=== PATIENT | female | born 1985 | race Caucasian/White ===

== ENCOUNTER → 2017-08-03 09:39 | Outpatient (CLI) | payer OTHER, SELFPAY ==
[2017-08-06 08:07] LABS: HPV HC, High Risk Negative (Negative)
== END ==
PROVIDERS: Visit Provider Obstetrics & Gynecology
DX: Z12.4 Encounter for screening for malignant neoplasm of cervix (principal); Z12.72 Encounter for screening for malignant neoplasm of vagina
CPT/HCPCS: 87624; 88175; G0145

== ENCOUNTER → 2020-05-08 | Outpatient (CLI) | payer OTHER, SELFPAY ==
[2018-11-08 12:24] VITALS: BMI 23.0
[2020-05-15 14:55] LABS: HPV Reflexed? NOT INDICATED
== END | disposition home or self-care (01) ==
PROVIDERS: Referring Provider Nurse Practitioner Adult Health; Visit Provider Nurse Practitioner Adult Health
DX: Z01.419 Encounter for gynecological examination (general) (routine) without abnormal findings (principal)
CPT/HCPCS: 87070; 87205; 88175; G0145

== ENCOUNTER → 2020-06-24 15:40 | Outpatient (CLI) | payer OTHER, SELFPAY ==
[2018-11-08 12:24] VITALS: BMI 23.0
== END ==
PROVIDERS: Visit Provider Nurse Practitioner Family
DX: R05 Cough (principal)
CPT/HCPCS: 87635; U0005; U0003

== ENCOUNTER → 2024-05-16 | Outpatient (CLI) | payer OTHER, SELFPAY ==
[2024-05-16 12:47] LABS: Anion Gap 7 (5-15); BUN 13 mg/dL (7-18); BUN/Creat Ratio 17.4 RATIO (10-20); Calcium,Total 8.9 mg/dL (8.5-10.1); Chloride 109 mmol/L (98-107); Cholesterol 168 mg/dL (200); Creatinine, Serum 0.75 mg/dL (0.55-1.02); EST Glomerular Filtration Rate 93 mL/min (>60); Est Glom Filt Rate - Afr Amer 112 mL/min (>60); Glucose 85 mg/dL (74-106); High Density Lipoprotein 75 mg/dL; Potassium 3.7 mmol/L (3.5-5.1); Sodium Level 139 mmol/L (136-145); Triglycerides 65 mg/dL; Very Low Density Lipoprotein 13 mg/dL (5-40)
== END | disposition home or self-care (01) ==
LOC: MTLAB 09:04
PROVIDERS: PCP Family Medicine; Referring Provider Family Medicine; Visit Provider Family Medicine
DX: Z13.1 Encounter for screening for diabetes mellitus (principal); Z13.220 Encounter for screening for lipoid disorders; Z13.29 Encounter for screening for other suspected endocrine disorder
CPT/HCPCS: 36415; 80048; 80061; 84443

== ENCOUNTER → 2025-05-09 | Outpatient (CLI) | payer OTHER, SELFPAY ==
--- NOTE | 2025-05-09 12:51 | US_ITS ---
PROCEDURE: BREAST LIMITED UNILATERAL 05/09/2025 REASON FOR EXAM: F, Age 40 y/o , LUMP Palpable lump in the left breast. COMPARISON: Prior mammogram done earlier in the day.. TECHNIQUE: Procedure Code: USBRSTLIMIT Modality: US Procedure: BREAST LIMITED UNILATERAL FINDINGS: The upper inner quadrant of the left breast was examined with ultrasound. There is dense fibroglandular tissue. Dilated retroareolar ducts. US/Breast Limited Unilateral IMPRESSION: Dilated retroareolar ducts. Dense fibroglandular tissue. BI-RADS 2: BENIGN RECOMMENDATION: Routine annual follow-up in 1 Year Reading Location: [facility]
--- NOTE | 2025-05-09 13:01 | BI_ITS ---
EXAM: DIAG MAMM W/CAD, BILAT N/A CLINICAL HISTORY: F, Age 40 y/o , LEFT BREAST LUMP TECHNIQUE: Procedure Code: [id number] Modality: MG Procedure: DIAG MAMM W/CAD, BILAT. COMPARISON: Prior exam(s) dated baseline study.. FINDINGS: TISSUE DENSITY: The breasts are extremely dense, which lowers the sensitivity of mammography. Bilateral Breast Mammographic Findings: I suspect a 1.2 cm well-defined nodular density in the retroareolar region of the left breast. This most likely corresponds with the abnormality. Sonographic correlation recommended. BI/DIAG MAMM W/CAD, BILAT IMPRESSION: 1.2 cm well-defined nodular density in the retroareolar region of the left nat[address] st as described. Sonographic correlate recommended. OVERALL FINAL ASSESSMENT BI-RADS 0: INCOMPLETE - NEED ADDITIONAL IMAGING EVALUATION. RECOMMENDATION: Ultrasound Recommended Additional Recommendation none A letter with findings and recommendations will be mailed to the patient. Reading Location: [facility]
--- OUTSIDE RECORDS SUMMARY | 2025-05-09 14:34 | XMS RPT_ITS | CCD ---
Author Organization [facility] Inform ion Partnership [facility] Care Team Providers Care Volunteer Patient Representative Name Role Phone Lazaro MERCADO, Francis Miller Unavailable Britni Rdz Unavailable Unavailable Jayesh Decker Primary Care Unavailable Jayesh Decker Referring Unavailable Phuc BILLINGSLEY, Donnie Bunch Attending Unavailable Jayesh Decker Primary Care Unavailable Jayesh Decker Referring Unavailable Marcio Corbin Attending Unavailable Jayesh Decker Primary Care Unavailable Jayesh Decker Attending Unavailable Jayesh Decker Referring Unavailable Allergies Allergy Classification Reported Allergen(s) Allergy Type Date of Onset Reaction(s) Facility (3 sources) Azithromycin Drug Allergy 03-26-2017 [facility] Work Phone: (3 sources) Penicillin V Drug Allergy 03-26-2017 [facility] Work Phone: (1 source) Erythromycin Drug Allergy 08-29-[address] [facility] Repository (1 source) Penicillins Drug allergy (disorder) 08-29-[address] [facility] Repository Medications Completed/Discontinued Medications Medication Drug Class(es) Dates Sig (Normalized) Sig (Original) nitrofurantoin, macrocrystals 25 mg / nitrofurantoin, monohydrate 75 mg oral capsule (3 sources) Nitrofuran Antibacterial Start: 03-26-2017 End: 04-02-2017 NITROFURANTOIN MACROCRYSTAL 100 MG CAPS Take 1 capsule twice daily NITROFURANTOIN MACROCRYSTAL [id number] Francis MERCADO Problems Active Problems Problem Classification Problem Date Documented Da te Episodic/Chronic Other screening for suspected conditions (not mental disorders or infectious disease) (1 source) Encounter for screening for diabetes mellitus; Translations: [Encounter for screening for diabetes mellitus] Onset: 12-23-2024 Episodic Other upper respiratory infections (1 source) Acute upper respiratory infection, unspecified; Translations: [Acute upper respiratory infection, unspecified] Onset: 06-04-2024 Episodic Past or Other Problems Problem Classification Problem Date Documented Da te Episodic/Chronic Abdominal pain (3 sources) Flank pain; Translations: [Unspecified abdominal pain] Onset: 03-26-2017 03-26-2017 Episodic Urinary tract infections (3 sources) Cystitis; Translations: [Cystitis, unspecified without hematuria] Onset: 03-26-2017 03-26-2017 Episodic Results Test Name Value Interpretation Reference Range Facility Urgent Care Visit Reporton 0 08-29-2024 Urgent Care Visit Report [facility] [address], [address] [place] [address] OFFICE VISIT Date of Service: 08/29/24 MR#: [id number] Acct: [id number] Name: SYLVIA KOLB Rep #: [id number] 5 : 1985 Provider: JESS Mcdonnell Age/Sex: 39/F Location[place] [facility] [place] Status: Signed Intake Vital Signs 06/04/24 08:38 08/29/24 17:24 Height 5 ft 3 in Weight: 151 lb BMI 26.7 BP 112/60 126/68 H Blood Pressure Location Lt brachial Lt brachial Position Sitting Sitting Respiration 16 15 Pulse 103 H 82 Pulse Source NIBP NIBP Temp 99.6 F H 98.4 F Temp Source Oral Oral Pulse Oximetry (%) 97 98 Oxygen Delivery Method room air room air Intake Visit Reasons: ST/COUGH Chief Complaint: scratchy throat, cough, drainage Control Officer Manager Required: No Is patient in pain?: No Allergies erythromycin lactobionate (From Erythrocin) Allergy (Verified 08/29/24 17:25) Rash Penicillins Allergy (Verified 08/29/24 17:25) Rash Medications ???Medication ???Instructions ???Recorded ???Confirmed ???Type benzonatate 200 mg capsule 200 mg PO TID PRN cough #20 caps 0 08/29/24 08/29/24 Rx Is last menstrual period known: No Post menopausal: No Patient : No Have you fallen in the past year?: No Nurse's Note: scratchy throat, cough, drainage x 4 days. denies HALEY, BA, fever, ST, congestion PFSH Medical History (Updated 06/04/24 @ 08:56 by Donnie Friend [employer]IATE, [employer] ASSOCIATE-C) No active medical problems Surgical History (Updated 06/04/24 @ 08:40 by Crystal Simental) History of tonsillectomy lip repair surgery History of removal of skin mole H/O section Social History (Updated 11/09/18 @ 15:28 by David Guo [employer] ASSOCIATE, [employer] ASSOCIATE-C) Smoking Status: Never smoker alcohol intake: never HPI HPI Chief Complaint: scratchy throat, cough, drainage Details: SYLVIA KOLB, is a 39 F who presents to the office today for [facility] evaluation in the [facility] for approximately 4 day history of persistent scratchy throat, cough, and post nasal drip. No c/o fever, chills, HALEY, myalgias, fatigue, nausea, and diarrhea. Patient notes no complaints of chest pain or shortness of breath or dyspnea on exertion. Several close contacts recently dx???d w/ similar URI complaints. No bnmd-rwg-theqryp products taken to assist. Nonsmoker. No other associated symptoms and no other alleviating/aggravat ing factors. ROS Const Constitutional: No other (As above) Exam Const General: cooperative, healthy appearing and no acute distress Orientation: alert, awake and oriented x3 HENMT Head: normal to inspection Ears: hearing grossly normal bilaterally, external ears normal, TM's normal bilaterally and EAC's normal Nose: external nose normal, nares normal, septum normal and clear nasal discharge Face and sinus: normal facial exam, sinuses nontender and face symmetric Mouth: oral mucosae normal, lip normal, tongue normal and oropharynx normal Throat: posterior oropharynx normal, tonsils normal, uvula midline and no postnasal drainage Eyes General: appearance normal, both eyes and all related structures Neck Neck: normal visual inspection, full ROM, no lymphadenopathy, no meningeal signs and supple Neck mass: No Thyroid: thyroid normal Lymphatic: no lymphadenopathy noted Chest Chest palpation inspection: normal inspection of the chest Resp Effort Inspection: normal respiratory effort, able to speak in complete sentences and no unsolicited cough during today's exam Auscultation: Bilateral: Clear to Auscultation Cardio Palpation: normal PMI Rate: Regular Rhythm: regular rhythm Heart Sounds: S1 normal, S2 normal, no gallops, no murmurs and no rubs Pulses: radial pulses present Skin General: no rashes or lesions noted Neuro General: patient alert, patient awake and patient oriented x3 Cognition: normal cognition Speech: speech normal Psych Appearance: grossly normal Mental Status: mental status grossly normal Mood: congruent mood Affect: normal affect Speech and Movement: speech and movement normal Attitude: cooperative Diagnoses Contact with or exposure to other viral diseases Z20.828 URI (upper respiratory infection) J06.9 Assessment and Plan Assessment and Plan (1) Contact with or exposure to other viral diseases: Status: Acute (2) URI (upper respiratory infection): Status: Acute Plan: See POC results. Benzonatate as prescribed today. Supportive measures as instructed today. Follow-up with PCP in 5 to 7 days should symptoms not improve, ED sooner should symptoms worsen or any other concerns develop. Pt states acknowledging understanding all the above. Results POC NICK Covid FluAB PCR POC Nick Covid PCR Not Detected Last Edit by Crystal Simental on 08/29/24 17:43 POC NICK FLU NOT DETECTED FLU A B Last Edit by (more content not included)... Normal [facility] Urgent Care Visit Reporton 1 08-05-2023 Urgent Care Visit Report [facility] [address], [address] [place] [address] OFFICE VISIT Date of Service: 06/04/24 MR#: [id number] Acct: [id number] Name: SYLVIA KOLB Rep #: [id number] 5 : 1985 Provider: NOELLE guo Age/Sex: 39/F Location: [facility] [place] Status: Signed Intake Vital Signs 06/04/24 08:38 Height 5 ft 3 in Weight: 151 lb BMI 26.7 BP 112/60 Blood Pressure Location Lt brachial Position Sitting Respiration 16 Pulse 103 H Pulse Source NIBP Temp 99.6 F H Temp Source Oral Pulse Oximetry (%) 97 Oxygen Delivery Method room air Intake Visit Reasons: CONCERN FOR Pneumonia Chief Complaint: chest tight, BA, HALEY, [employer] ASSOCIATE cough Control Officer Manager Required: No Is patient in pain?: No Allergies erythromycin lactobionate (From Erythrocin) Allergy (Verified 06/04/24 08:39) Rash Penicillins Allergy (Verified 06/04/24 08:39) Rash Medications ???Medication ???Instructions ???Recorded ???Confirmed ???Type NK 06/04/24 06/04/24 History doxycycline monohydrate 100 mg 100 mg PO BID 7 days #14 tabs 06/04/24 06/04/24 Rx tablet Is last menstrual period known: No Post menopausal: No Patient : No Have you fallen in the past year?: No Nurse's Note: chest tight, BA, HALEY, [employer] ASSOCIATE cough x 24 hours. denies fever, mucus. declines viral testing. has two children at home with pneumonia and a sick . concern for pneumonia, aware we have no xray today. [facility] Medical History (Updated 06/04/24 @ 08:56 by Donnie Friend [employer]S ASSOCIATE, [employer]ITIONS ASSOCIATE-C) No active medical problems Surgical History (Updated 06/04/24 @ 08:40 by Crystal Simental) History of tonsillectomy lip repair surgery History of removal of skin mole H/O section Social History (Updated 11/09/18 @ 15:28 by David Guo [employer] ASSOCIATE, [employer]ITIONS ASSOCIATE-C) Smoking Status: Never smoker alcohol intake: never HPI HPI Chief Complaint: chest tight, BA, HALEY, [employer] ASSOCIATE cough Details: SYLVIA KOLB, is a 39 F who presents to the office today for concerns regarding possible pneumonia. She acknowledges multiple family members diagnosed with respiratory symptoms and treated for pneumonia with antibiotics. She is concerned with similar symptoms that she to may have pneumonia. She declined a viral respiratory panel testing. She acknowledges chest congestion and cough. She acknowledges that she tries to limit her cough due to discomfort. She acknowledges headache. She denies fever or mucus production. This has been ongoing for 48-72 hours. ROS Const Constitutional: Positive for fatigue (slept all day), headache(s) and change in appetite (Less food than usual); No body ache, chills, fever(s) or snoring Eyes Eyes: No blurry vision, change in vision, double vision, irritation, discharge, vision loss, dry eyes, bulging eyes, floaters, visual disturbances, eye pain, Light sensitivity, spots in vision, tunnel vision or other ENT ENT: Positive for headache(s); No ear or mastoid pain, ear discharge, ear pressure, tinnitus, dizziness/vertigo, nosebleed/epistaxis, nasal congestion, nose pain, sinus pressure, sinus pain, nasal discharge, post nasal drip, facial pain, dental pain, difficulty swallowing, bad breath, hoarseness, lip swelling, mouth lesions, mouth pain, neck pain, sore throat, tongue swelling or throat swelling Resp Respiratory: Positive for cough (trying to move) Cough: Yes non-productive and chest congestion; No change in phlegm color, hemoptysis, pain on inspiration, shortness of breath, pain with cough, snoring, stridor or wheezing Cardio Cardiology: No chest pain at rest, chest pain with exertion, shortness of breath, dyspnea on exertion or lightheadedness Gastro GI: No abdominal pain, change in bowel habits or difficulty swallowing Genitourinary-Female : No burning urination or urinary frequency Musc Musculoskeletal: No joint pain or neck pain Skin Skin: No rash Neuro Neurology: Positive for headache(s); No visual disturbances Psych Psychiatric: Positive for change in appetite (Less food than usual) Endo Endocrine: Positive for fatigue (slept all day) Aller/Imm Allergy/Immunologic: No lip swelling, throat swelling, tongue swelling or wheezing Exam Const General: cooperative, healthy appearing, comfortable and no acute distress Orientation: alert, awake and oriented x3 HENMT Head: normal to inspection and normocephalic Ears: hearing grossly normal bilaterally, external ears normal and TM's normal bilaterally Nose: external nose normal, nares normal and no nasal discharge Face and sinus: normal facial exam and sinuses nontender Mouth: oral mucosae normal, lip normal, tongue normal, oropharynx normal and moist mucous membranes Throat: posterior oropharynx normal, tonsils normal, uvula midline and no postnasal drainage Eyes General: appearance normal, (more content not included)... Normal [facility] Basic Metabolic Profile (BMP )on 05-16-2024 BUN/CRE 17.4 RATIO Normal 04-[address] [facility] Comment on above: Order Comment: Order Date: 04/13/24 Order Info: 0667-1 - BMP Order Info: [id number] - LIPID Order Info: 3016-3 - TSH Performed By: #### L 500.2500, L501.6620, L500.3580 #### [facility] [address] [place], [place], [address] CA,Total 8.9 mg/dL Normal 8.5-10.[address] [facility] Comment on above: Order Comment: Order Date: 04/13/24 Order Info: 666-06 - BMP Order Info: - LIPID Order Info: 3015-08 - TSH Performed By: #### L 500.2500, L501.9520, L500.4100 #### [facility] [address] [place], [address] Chloride [Moles/Vol] 109 mmol/L High 98-[address] [facility] Comment on above: Order Comment: Order Date: 04/13/24 Order Info: 666-06 - BMP Order Info: - LIPID Order Info: 3015-08 - TSH Performed By: #### L 500.2500, L501.9520, L500.4100 #### [facility] [address] [place], [address] CO2 [Moles/Vol] 24.0 mmol/L Normal 21.0-32.[address] [facility] Comment on above: Order Comment: Order Date: 04/13/24 Order Info: 666-06 - BMP Order Info: - LIPID Order Info: 3015-08 - TSH Performed By: #### L 500.2500, L501.9520, L500.4100 #### [facility] [address] [place], [address] Creatinine [Mass/Vol] 0.75 mg/dL Normal 0.55-1.[address] [facility] Comment on above: Order Comment: Order Date: 04/13/24 Order Info: 666-06 - BMP Order Info: - LIPID Order Info: 3015-08 - TSH Result Comment: The validity of the calculated GFR GFRAA in patients over 70 years has not been determined. Clinical correlation is essential. Performed By: #### L 500.2500, L501.9520, L500.4100 #### [facility] [address] [place], [address] EST GFR - AA 112 mL/min Normal >[address] [facility] Comment on above: Order Comment: Order Date: 04/13/24 Order Info: 666-06 - BMP Order Info: - LIPID Order Info: 3015-08 - TSH Result Comment: Afri can [place] GFR Calc Performed By: #### L 500.2500, L501.9520, L500.4100 #### [facility] [address] [place], [address] GAP 7 Normal 5-[address] [facility] Comment on above: Order Comment: Order Date: 04/13/24 Order Info: 666-06 - BMP Order Info: - LIPID Order Info: 3015-08 - TSH Performed By: #### L 500.2500, L501.9520, L500.4100 #### [facility] [address] [place], [address] GFR/1.73 sq M.predicted among non-blacks MDRD (S/P/Bld) [Vol rate/Area] 93 mL/min/{1.73_m2} Normal >[address] [facility] Comment on above: Order Comment: Order Date: 04/13/24 Order Info: 666-06 - BMP Order Info: - LIPID Order Info: 3015-08 - TSH Result Comment: Non- GFR Calc Performed By: #### L 500.2500, L501.9520, L500.4100 #### [facility] [address] [place], [address] Glucose [Mass/Vol] 85 mg/dL Normal 74-106 [facility] Comment on above: Order Comment: Order Date: 04/13/24 Order Info: 666-06 - BMP Order Info: - LIPID Order Info: 3 - TSH Performed By: #### L 500.2500, L501.9520, L500.4100 #### [facility] [address] [place], [address] Potassium [Moles/Vol] 3.7 mmol/L Normal 3.5-5.[address] [facility] Comment on above: Order Comment: Order Date: 04/13/24 Order Info: 666-06 - BMP Order Info: - LIPID Order Info: 3015-08 - TSH Performed By: #### L 500.2500, L501.9520, L500.4100 #### [facility] [address] [place], [address] Sodium [Moles/Vol] 139 mmol/L Normal 136-145 [facility] Comment on above: Order Comment: Order Date: 04/13/24 Order Info: 666-06 - BMP Order Info: - LIPID Order Info: 3015-08 - TSH Performed By: #### L 500.2500, L501.9520, L500.4100 #### [facility] [address] [place], [place], [address] Urea nitrogen [Mass/Vol] 13 mg/dL Normal 7-[address] [facility] Comment on above: Order Comment: Order Date: 04/13/24 Order Info: 666-06 - BMP Order Info: - LIPID Order Info: 3015-08 - TSH Performed By: #### L 500.2500, L501.9520, L500.4100 #### [facility] [address] [place], [address] Lipid Profileon 05-16-2024 Cholesterol [Mass/Vol] 168 mg/dL Normal [address] [facility] Comment on above: Order Comment: Order Date: 04/13/24 Order Info: 666-06 - BMP Order Info: - LIPID Order Info: 3015-08 - TSH Result Comment: <200 mg/dL Desirable 200-240 mg/dL Borderline >240 mg/dL High Risk Performed By: #### L 500.2500, L501.9520, L500.4100 #### [facility] [address] [place], [address] Cholesterol in HDL [Mass/Vol] 75 mg/dL Normal [facility] Comment on above: Order Comment: Order Date: 04/13/24 Order Info: 666-06 - BMP Order Info: - LIPID Order Info: 3015-08 - TSH Result Comment: The drugs N-Acetylcysteine and Metamizole may falsely depress this assay. Reference Range HDL <40 mg/dL Low HDL Cholesterol HDL >or= 60 mg/dL High HDL Cholesterol Performed By: #### L 500.2500, L501.9520, L500.4100 #### [facility] [address] [place], [address] Cholesterol in LDL [Mass/Vol] 80 mg/dL Normal 0-[address] [facility] Comment on above: Order Comment: Order Date: 04/13/24 Order Info: 666-06 - BMP Order Info: - LIPID Order Info: 3015-08 - TSH Performed By: #### L 500.2500, L501.9520, L500.4100 #### [facility] [address] [place], [address] Cholesterol in VLDL [Mass/Vol] 13 mg/dL Normal 5-[address] [facility] Comment on above: Order Comment: Order Date: 04/13/24 Order Info: 666-06 - BMP Order Info: - LIPID Order Info: 3015-08 - TSH Performed By: #### L 500.2500, L501.9520, L500.4100 #### [facility] [address] [place], [address] Triglyceride [Mass/Vol] 65 mg/dL Normal [facility] Comment on above: Order Comment: Order Date: 04/13/24 Order Info: 666-06 - BMP Order Info: - LIPID Order Info: 3015-08 - TSH Result Comment: The drugs N-Acetylcysteine and Metamizole may falsely depress this assay. Serum Triglycerides Reference Interval Normal <150 mg/dL Borderline high 150 - 199 mg/dL High 200 - 499 mg/dL Very High > or = 500 mg/dL Performed By: #### L 500.2500, L501.9520, L500.4100 #### [facility] [address] [place], [place], [address] Thyroid Stim Hormone (TSH)on 05-16-2024 TSH 2.110 uIU/mL Normal 0.358-3.[address] [facility] Comment on above: Order Comment: Order Date: 04/13/24 Order Info: 0667-1 - BMP Order Info: [id number] - LIPID Order Info: 3016-3 - TSH Performed By: #### L 500.2500, L501.9520, L500.4100 #### [facility] [address] [place], [place], [address] Microbiology: Culture, Urine on 03-28-2017 CUUR . Invalid Interpretation Code [facility] Work Phone: Office Visit: UC: kidney justyn non 03-26-2017 Albumin Ql (U) Negative Invalid Interpretation Code [facility] Work Phone: Appearance Nom (U) clear Invalid Interpretation Code [facility] Work Phone: Bilirubin Ql (U) Negative Invalid Interpretation Code [facility] Work Phone: Color Nom (U) lt. yellow Invalid Interpretation Code [facility] Work Phone: Fall risk assessment No Invalid Interpretation Code [facility] Work Phone: Glucose Test strip mass conc (U) Negative Invalid Interpretation Code [facility] Work Phone: HCG.beta subunit ( test) Ql (U) Negative Invalid Interpretation Code [facility] Work Phone: Ketones mass conc (U) Negative Invalid Interpretation Code [facility] Work Phone: Leukocyte esterase Test strip Ql (U) 2+ Invalid Interpretation Code [facility] Work Phone: Nitrite Test strip Ql (U) Negative Invalid Interpretation Code [facility] Work Phone: pH Test strip (U) 6.5 [pH] Invalid Interpretation Code [facility] Work Phone: Protein mass conc Done Invalid Interpretation Code [facility] Work Phone: Specific gravity Refractometry Relative Density (U) 1.010 Invalid Interpretation Code [facility] Work Phone: Tobacco smoking status NHIS Never smoker Invalid Interpretation Code [facility] Work Phone: Urobilinogen Test strip Ql (U) Negative Invalid Interpretation Code [facility] Work Phone: Vital Signs Date Time Vital Sign Value Performing Clinician Faci lity 03-26-2017 16:26-0400 BMI (Body Mass Index) 23.77 kg/m2 Francis MERCADO [facility] Work Phone: 03-26-2017 16:26-0400 Body Temperature 98.4 [degF] Francis MERCADO [facility] Work Phone: 03-26-2017 16:26-0400 BP Diastolic 64 mm[Hg] Francis MERCADO [facility] Work Phone: 03-26-2017 16:26-0400 BP Systolic 118 mm[Hg] Francis MERCADO [facility] Work Phone: 03-26-2017 16:26-0400 Height 160.02 cm Francis MERCADO [facility] Work Phone: 03-26-2017 16:26-0400 Pulse (Heart Rate) 69 /min Francis MERCADO [facility] Work Phone: 03-26-2017 16:26-0400 Respiratory Rate 14 /min Francis MERCADO [facility] Work Phone: 03-26-2017 16:26-0400 Weight 60.87 kg Francis MERCADO [facility] Work Phone: Encounters Encounter Date Encounter Type Care Provider Facility Start: 08-29-2024 End: 08-29-2024 ambulatory [facility] Facility:[facility] [place] Start: 06-04-2024 End: 06-04-2024 ambulatory [facility] Facility:[facility] Start: 05-16-2024 End: 05-16-2024 ambulatory Jayesh Decker Facility:[facility] Procedures Date Procedure Procedure Detail Performing Clinician Start: 03-26-2017 End: 03-26-2017 Urinalysis Francis MERCADO Start: 03-26-2017 End: 03-26-2017 Urine test visual color cmprsn meths Francis MERCADO Work Phone: Start: 03-26-2017 End: 03-26-2017 Urnls dip stick/tablet rgnt non-auto w/o micrscp Francis MERCADO Work Phone: Plan of Treatment Date Care Activity Detail Author Start: 03-26-2017 End: 03-26-2017 Appointment Appointment [facility] Work Phone: Start: 03-26-2017 End: 03-26-2017 Bacteria identified Cx Nom (U) Urine Culture [facility] Work Phone: Payers Date Payer Category Payer Self-pay 2020 Unknown [id number] Unknown [id number] [id number] [id number] Unknown [id number] [id number] Unknown [id number] [id number] Summary Purpose Family History No Family History Records Found Advance Directives No Advanced Directives Records Found Additional Source Comments INFORMATION SOURCE (unrecogn ized section and content) DATE CREATED AUTHOR 09/01/2024 [facility] FOR RECORDS PERTAINING TO PATIENTS WHO ARE OR HAVE BEEN ENROLLED IN A CHEMICAL DEPENDENCY/SUBSTANCEABUSE PROGRAM, SOME INFORMATION MAY BE OMITTED. This clinical summary was aggregated from multiple sources. Caution should be exercised in using it in the provision of clinical care. This summary normalizes information from multiple sources, and as a consequence, information in this document may materially change the coding, format and clinical context of patient data. In addition, data may be omitted in some cases. CLINICAL DECISIONS SHOULD BE BASED ON THE PRIMARY CLINICAL RECORDS. [facility] [employer] provides no warranty or guarantee of the accuracy or completeness of information in this document.
== END | disposition home or self-care (01) ==
LOC: OPBI 12:50
PROVIDERS: PCP Family Medicine
DX: N63.22 Unspecified lump in the left breast, upper inner quadrant (principal)
CPT/HCPCS: 76642; 77062; 77066; G0279